=== PATIENT | female | born 1960 | race Caucasian/White ===

== ENCOUNTER → 2017-08-26 | Outpatient (CLI) | payer MEDICARE ==
[~2017-08-26] MED LIST: ACIPHEX20 MG PO; ATIVAN0.5 MG PO; AUGMENTIN 875 M1 TAB PO; BENADRYL25 MG PO; BIAXIN500 MG PO; CIPRO500 MG PO; CLARITIN10 MG PO; CLINDAMYCIN HC300 MG PO; CLINDAMYCIN150 MG PO; DARVOCET N 1001 TAB PO; DAYPRO600 M1 PO; DEPAKOTE500 MG PO; DILANTIN100 MG PO; LEVOTHYROXINE0.15 M1 PO; LORAZEPAM0.5 MG PO; LOVASTATIN40 MG PO; MOTRIN800 MG PO; NAPROSYN500 MG PO; NATURE'S BLEND F1 MG PO; OMEPRAZOLE40 MG PO; PALMITATE-A5000 IU PO; PRAVASTATIN SOD40 MG PO; PROZAC10 M1 PO; REGLAN10 MG PO; ROBAXIN500 MG PO; ROBAXIN750 MG PO; SERTRALINE HYDR50 MG PO; SKELAXIN800 MG PO; SULFAZINE500 MG PO; SYNTHROID,LEVO50 MCG PO; SYNTHROID0.175 MG PO; TAGAMET400 MG PO; VICODIN 5/500 505 MG PO; VITAMIN D5000 IU PO; VOLTAREN25 MG PO; ZITHROMAX250 MG PO; ZYRTEC10 MG PO
== END | disposition home or self-care (01) ==
LOC: RAD 14:08
DX: M17.0 Bilateral primary osteoarthritis of knee (principal); M48.04 Spinal stenosis, thoracic region; M47.894 Other spondylosis, thoracic region; J98.4 Other disorders of lung; F17.200 Nicotine dependence, unspecified, uncomplicated

== ENCOUNTER 2017-10-02 08:20 | Emergency (ER) | payer MEDICARE ==
[~2017-10-02] VITALS: Ht 167.6 cm; Wt 88.0 kg
[2017-10-02 08:30] VITALS: BP 141/70
[2017-10-02 09:25] LABS: BILIRUBIN NEGATIVE (NEGATIVE); BLOOD TRACE-INTACT (NEGATIVE); CLARITY CLEAR (CLEAR); COLOR YELLOW (YELLOW); GLUCOSE NEGATIVE (NEGATIVE); KETONE NEGATIVE (NEGATIVE); LEUKO ESTERASE NEGATIVE (NEGATIVE); NITRITE NEGATIVE (NEGATIVE); PH 5.5 (5.0-9.0); SPECIFIC GRAVITY 1.015 (1.005-1.030); UROBILINOGEN 0.2 E.U./dl (0.2-1.0)
[2017-10-02 09:37] LABS: BACTERIA 1+; WBC 0-2 wbc/hpf (0-5)
== END 2017-10-02 09:44 | disposition home or self-care (01) ==
LOC: ED 08:20
PROVIDERS: Emergency Medicine
DX: M54.5 Low back pain (principal); F17.200 Nicotine dependence, unspecified, uncomplicated; J44.9 Chronic obstructive pulmonary disease, unspecified; Z98.51 Tubal ligation status; Z90.710 Acquired absence of both cervix and uterus; Z79.899 Other long term (current) drug therapy; Z88.0 Allergy status to penicillin

== ENCOUNTER 2017-10-05 11:48 | Emergency (ER) | payer MEDICARE ==
[~2017-10-05] VITALS: Ht 167.6 cm; Wt 88.0 kg
[2017-10-05 12:11] VITALS: BP 134/98
[2017-10-05 12:29] LABS: BILIRUBIN NEGATIVE (NEGATIVE); BLOOD NEGATIVE (NEGATIVE); CLARITY SL CLOUDY (CLEAR); COLOR YELLOW (YELLOW); GLUCOSE NEGATIVE (NEGATIVE); KETONE NEGATIVE (NEGATIVE); LEUKO ESTERASE NEGATIVE (NEGATIVE); NITRITE NEGATIVE (NEGATIVE); PH 6.5 (5.0-9.0); SPECIFIC GRAVITY <= 1.005 (1.005-1.030); UROBILINOGEN 0.2 E.U./dl (0.2-1.0)
[2017-10-05] MEDS ORDERED: MEDROL DOSEPAK4 MG PO (12:33)
[2017-10-05] MEDS ORDERED: GABAPENTIN100 M2 PO (12:33)
[2017-10-05 12:46] LABS: BACTERIA TRACE; EPITHELIAL CELLS 21-30
== END 2017-10-05 12:43 | disposition home or self-care (01) ==
LOC: ED 11:48
PROVIDERS: Emergency Medicine
DX: M54.41 Lumbago with sciatica, right side (principal); R10.31 Right lower quadrant pain; F10.10 Alcohol abuse, uncomplicated; F17.200 Nicotine dependence, unspecified, uncomplicated; Z88.0 Allergy status to penicillin; Z79.899 Other long term (current) drug therapy; Z90.49 Acquired absence of other specified parts of digestive tract; Z98.51 Tubal ligation status

== ENCOUNTER 2018-02-19 10:47 | Emergency (ER) | payer MEDICARE ==
[~2018-02-19] VITALS: Wt 86.2 kg
[~2018-02-19 10:47] MED LIST changes: +GABAPENTIN100 M2 PO; +MEDROL DOSEPAK4 MG PO
[2018-02-19 12:20] VITALS: BP 148/62
[2018-02-19] MEDS ORDERED: Motrin,Rufen800 MG PO (12:58)
== END 2018-02-19 13:04 | disposition home or self-care (01) ==
LOC: ED 10:47
DX: S30.0XXA Contusion of lower back and pelvis, initial encounter (principal); Z88.0 Allergy status to penicillin; Z79.899 Other long term (current) drug therapy; Z90.49 Acquired absence of other specified parts of digestive tract; Z90.710 Acquired absence of both cervix and uterus; Z98.51 Tubal ligation status; W10.8XXA Fall (on) (from) other stairs and steps, initial encounter; Y93.89 Activity, other specified; Y92.89 Other specified places as the place of occurrence of the external cause; Y99.8 Other external cause status

== ENCOUNTER 2019-11-05 11:49 | Emergency (ER) | payer MEDICARE ==
[~2019-11-05] VITALS: Ht 167.6 cm; Wt 83.9 kg
[~2019-11-05 11:49] MED LIST changes: +Motrin,Rufen800 MG PO
[2019-11-05 11:52] VITALS: BP 162/70
[2019-11-05 12:22] LABS: BASO # 0.1 10*3/uL (0.0-0.1); BASO % 0.5 % (0.0-1.0); EOS # 0.3 10*3/uL (0.0-0.4); EOS % 2.6 % (1.0-4.0); HEMATOCRIT 45.3 % (37.0-47.0); HEMOGLOBIN 14.6 g/dl (12.0-16.0); LYMPH # 3.8 10*3/uL (1.3-4.4); LYMPH % 38.3 % (27.0-41.0); MEAN CELL VOLUME 91.7 fl (81.0-99.0); MEAN CORPUSCULAR HGB 29.6 pg (27.0-31.0); MEAN CORPUSCULAR HGB CONC 32.2 g/dl (33.0-37.0); MEAN PLATELET VOLUME 10.1 fl (9.6-12.3); MONO # 0.5 10*3/uL (0.1-1.0); MONO % 5.1 % (3.0-9.0); NEUT # 5.2 10*3/uL (2.3-7.9); NEUT % 53.3 % (47.0-73.0); PLATELET COUNT AUTOMATED 306 10*3/uL (130-400); RED BLOOD COUNT 4.94 10*6/uL (4.10-5.10); RED CELL DISTRI WIDTH 13.2 % (0-14.5); WHITE BLOOD COUNT 9.8 10*3/uL (4.8-10.8)
[2019-11-05 12:39] LABS: ALBUMIN 3.5 gm/dl (3.1-4.5); ALKALINE PHOSPHATASE 106 U/L (45-117); BUN 9 mg/dl (7-24); CHLORIDE 109 mmol/L (98-107); CREATININE 0.96 mg/dL (0.55-1.02); POTASSIUM 3.9 mmol/L (3.5-5.1); SGOT/AST 16 IU/L (3-35); SGPT/ALT 28 U/L (12-78); SODIUM 142 mmol/L (136-145); TOTAL PROTEIN 7.1 gm/dL (6.4-8.2)
[2019-11-05 12:40] LABS: TROPONIN I < 0.015 ng/ml (<0.045)
[2019-11-05] MEDS ORDERED: LEVAQUIN500 M2 PO (14:20)
[2019-11-05] MEDS ORDERED: PREDNISONE50 MG PO (14:20)
== END 2019-11-05 14:28 | disposition home or self-care (01) ==
LOC: ED 11:49
PROVIDERS: Family Medicine
DX: S30.0XXA Contusion of lower back and pelvis, initial encounter (principal); J40 Bronchitis, not specified as acute or chronic; R09.1 Pleurisy; Z88.0 Allergy status to penicillin; Z79.899 Other long term (current) drug therapy; X58.XXXA Exposure to other specified factors, initial encounter; Y93.89 Activity, other specified; Y92.89 Other specified places as the place of occurrence of the external cause; Y99.8 Other external cause status

== ENCOUNTER → 2019-12-26 | Outpatient (CLI) | payer MEDICARE ==
[~2019-12-26] MED LIST changes: +LEVAQUIN500 M2 PO; +PREDNISONE50 MG PO
[2019-12-26 12:09] LABS: HEMATOCRIT 45.6 % (37.0-47.0); HEMOGLOBIN 14.6 g/dl (12.0-16.0); MEAN CELL VOLUME 90.1 fl (81.0-99.0); MEAN CORPUSCULAR HGB 28.9 pg (27.0-31.0); MEAN PLATELET VOLUME 10.3 fl (9.6-12.3); PLATELET COUNT AUTOMATED 320 10*3/uL (130-400); RED BLOOD COUNT 5.06 10*6/uL (4.10-5.10); RED CELL DISTRI WIDTH 13.2 % (0-14.5)
[2019-12-26 12:59] LABS: ATYPICAL LYMPHS 3 % (0-0); BASOPHILS 2 % (0-1); PLATELET SUFFICIENCY NORMAL (NORMAL); TOTAL CELLS COUNTED 100 #CELLS
[2019-12-26 13:00] LABS: ALBUMIN 3.5 gm/dl (3.1-4.5); ALKALINE PHOSPHATASE 102 U/L (45-117); BUN 10 mg/dl (7-24); CHLORIDE 109 mmol/L (98-107); CHOLESTEROL 142 mg/dL (<200); CREATININE 0.91 mg/dL (0.55-1.02); FREE T4 1.72 ng/dl (0.76-1.46); HDL CHOLESTEROL 28 mg/dl (40-60); LDL CHOLESTEROL 66 mg/dL (9-159); POTASSIUM 4.5 mmol/L (3.5-5.1); SGOT/AST 14 IU/L (3-35); SGPT/ALT 25 U/L (12-78); SODIUM 141 mmol/L (136-145); TOTAL PROTEIN 7.2 gm/dL (6.4-8.2); TRIGLYCERIDES 239 mg/dl (<150); VLDL CHOLESTEROL 48 mg/dL (6-40)
[2019-12-26 13:25] LABS: VITAMIN D, 25-HYDROXY 48.7 ng/mL (30-100)
== END | disposition home or self-care (01) ==
LOC: LAB 11:50
PROVIDERS: Internal Medicine
DX: E55.9 Vitamin D deficiency, unspecified (principal); E66.9 Obesity, unspecified; R53.83 Other fatigue

== ENCOUNTER → 2020-06-04 | Outpatient (CLI) | payer OTHER | END | disposition home or self-care (01) | LOC: LAB 17:12 | DX: R19.7 Diarrhea, unspecified (principal) ==

== ENCOUNTER → 2021-02-07 | Outpatient (CLI) | payer OTHER ==
[2021-02-07 15:08] LABS: FREE T4 0.74 ng/dl (0.76-1.46)
[2021-02-07 15:13] LABS: THYROID STIM HORMONE (HS) 14.4 uIU/ml (0.358-4.75)
== END | disposition home or self-care (01) ==
LOC: LAB 14:00
PROVIDERS: ATTEND Internal Medicine
DX: E03.9 Hypothyroidism, unspecified (principal)

== ENCOUNTER → 2021-09-03 | Outpatient (CLI) | payer OTHER | END | disposition home or self-care (01) | LOC: LAB 12:46 | PROVIDERS: ATTEND Internal Medicine | DX: Z13.1 Encounter for screening for diabetes mellitus (principal); Z13.21 Encounter for screening for nutritional disorder; Z13.220 Encounter for screening for lipoid disorders; Z13.228 Encounter for screening for other metabolic disorders; Z13.6 Encounter for screening for cardiovascular disorders; Z13.89 Encounter for screening for other disorder; R53.81 Other malaise; R79.89 Other specified abnormal findings of blood chemistry; E55.9 Vitamin D deficiency, unspecified; M10.9 Gout, unspecified; D51.9 Vitamin B12 deficiency anemia, unspecified; D52.9 Folate deficiency anemia, unspecified; E03.9 Hypothyroidism, unspecified ==

== ENCOUNTER 2021-12-30 09:15 | Emergency (ER) | payer OTHER ==
[~2021-12-30] VITALS: Ht 167.6 cm; Wt 88.0 kg
[2021-12-30 09:39] VITALS: BP 155/89
[2021-12-30 10:03] LABS: BILIRUBIN 1+ (Negative); BLOOD Negative (Negative); CLARITY Clear (Clear); COLOR Dark Yellow (Yellow); GLUCOSE Negative (Negative); KETONE Trace (Negative); LEUKO ESTERASE Trace (Negative); NITRITE Positive (Negative); PH 6.5 (4.5-8.0); SPECIFIC GRAVITY 1.015 (1.001-1.030)
[2021-12-30 10:17] LABS: HEMATOCRIT 45.7 % (37.0-47.0); MEAN CELL VOLUME 91.6 fl (81.0-99.0); MEAN CORPUSCULAR HGB 30.1 pg (27.0-31.0); MEAN CORPUSCULAR HGB CONC 32.8 g/dl (33.0-37.0); MEAN PLATELET VOLUME 10.4 fl (9.6-12.3); PLATELET COUNT AUTOMATED 333 10*3/uL (130-400); RED BLOOD COUNT 4.99 10*6/uL (4.10-5.10); RED CELL DISTRI WIDTH 12.9 % (0-14.5); WHITE BLOOD COUNT 10.6 10*3/uL (4.8-10.8)
[2021-12-30 10:24] LABS: MANUAL DIFF REFLEX YES
[2021-12-30 10:29] LABS: ACT PARTIAL THROMBO TIME 25.9 SECONDS (20.0-32.1)
[2021-12-30 10:32] LABS: BACTERIA 2+; HYALINE CAST 21-30; MUCOUS 2+
[2021-12-30 10:38] LABS: CREATININE 1.15 mg/dL (0.55-1.02); POTASSIUM 4.2 mmol/L (3.5-5.1); TOTAL PROTEIN 7.7 gm/dL (6.4-8.2)
[2021-12-30 10:51] LABS: BASOPHILS 1 % (0-1); TOTAL CELLS COUNTED 100 #CELLS
[2021-12-30 10:52] LABS: PLATELET SUFFICIENCY NORMAL (NORMAL); POLYCHROMASIA SLIGHT
[2021-12-30] MEDS ORDERED: CIPRO500 MG PO (13:52)
[2021-12-30] MEDS ORDERED: PHENERGAN25 M3 PO (13:54)
== END 2021-12-30 14:10 | disposition home or self-care (01) ==
LOC: ED 09:15
PROVIDERS: Emergency Medicine
DX: N39.0 Urinary tract infection, site not specified (principal); R06.02 Shortness of breath; F17.200 Nicotine dependence, unspecified, uncomplicated; Z88.0 Allergy status to penicillin; Z79.2 Long term (current) use of antibiotics; Z79.899 Other long term (current) drug therapy; Z90.710 Acquired absence of both cervix and uterus; Z98.51 Tubal ligation status; Z90.49 Acquired absence of other specified parts of digestive tract

== ENCOUNTER → 2022-02-24 | Outpatient (CLI) | payer OTHER ==
[~2022-02-24] MED LIST changes: +PHENERGAN25 M3 PO
== END | disposition home or self-care (01) ==
LOC: MAMMO 11:30
PROVIDERS: ATTEND Internal Medicine
DX: Z12.31 Encounter for screening mammogram for malignant neoplasm of breast (principal)

== ENCOUNTER → 2022-08-04 | Outpatient (CLI) | payer OTHER | END | disposition home or self-care (01) | LOC: RAD 12:35 | PROVIDERS: ATTEND Internal Medicine | DX: M47.814 Spondylosis without myelopathy or radiculopathy, thoracic region (principal); M25.78 Osteophyte, vertebrae; M43.8X4 Other specified deforming dorsopathies, thoracic region ==

== ENCOUNTER 2022-08-08 15:27 | Emergency (ER) | payer OTHER ==
[~2022-08-08] VITALS: Ht 162.5 cm; Wt 88.0 kg
[2022-08-08 15:35] VITALS: BP 104/39
[2022-08-08 16:34] LABS: BASO # 0.1 10*3/uL (0.0-0.1); BASO % 0.4 % (0.0-1.0); EOS # 0.3 10*3/uL (0.0-0.4); EOS % 1.7 % (1.0-4.0); HEMATOCRIT 44.5 % (37.0-47.0); LYMPH % 24.8 % (27.0-41.0); MEAN CELL VOLUME 97.2 fl (81.0-99.0); MEAN CORPUSCULAR HGB 30.8 pg (27.0-31.0); MEAN CORPUSCULAR HGB CONC 31.7 g/dl (33.0-37.0); MEAN PLATELET VOLUME 10.2 fl (9.6-12.3); MONO # 1.1 10*3/uL (0.1-1.0); MONO % 6.8 % (3.0-9.0); NEUT # 10.7 10*3/uL (2.3-7.9); NEUT % 65.6 % (47.0-73.0); PLATELET COUNT AUTOMATED 324 10*3/uL (130-400); RED BLOOD COUNT 4.58 10*6/uL (4.10-5.10); RED CELL DISTRI WIDTH 12.2 % (0-14.5); WHITE BLOOD COUNT 16.3 10*3/uL (4.8-10.8)
[2022-08-08 16:51] LABS: ACT PARTIAL THROMBO TIME 24.7 SECONDS (20.0-32.1); INTERNATIONAL NORM RATIO 0.9 (2.0-3.5)
[2022-08-08 16:56] LABS: CREATININE 1.38 mg/dL (0.55-1.02); POTASSIUM 5.4 mmol/L (3.5-5.1); TOTAL PROTEIN 6.9 gm/dL (6.4-8.2)
[2022-08-08] MEDS ORDERED: CARAFATE1 G1 PO (19:36)
== END 2022-08-08 19:37 | disposition home or self-care (01) ==
LOC: ED 15:27
PROVIDERS: Family Medicine
DX: E87.5 Hyperkalemia (principal); K21.9 Gastro-esophageal reflux disease without esophagitis; K52.89 Other specified noninfective gastroenteritis and colitis; K50.10 Crohn's disease of large intestine without complications; Z88.0 Allergy status to penicillin; Z79.899 Other long term (current) drug therapy; Z90.710 Acquired absence of both cervix and uterus; Z98.51 Tubal ligation status; Z90.49 Acquired absence of other specified parts of digestive tract

== ENCOUNTER → 2022-08-11 | Outpatient (CLI) | payer OTHER ==
[~2022-08-11] MED LIST changes: +CARAFATE1 G1 PO
[2022-08-11 14:57] LABS: BUN 13 mg/dl (7-24); CHLORIDE 110 mmol/L (98-107); CREATININE 0.88 mg/dL (0.55-1.02); POTASSIUM 4.7 mmol/L (3.5-5.1); SODIUM 139 mmol/L (136-145)
== END | disposition home or self-care (01) ==
LOC: LAB 14:26
PROVIDERS: ATTEND Family Medicine
DX: E83.52 Hypercalcemia (principal)

== ENCOUNTER → 2023-01-07 | Outpatient (CLI) | payer OTHER | END | disposition home or self-care (01) | LOC: LAB 15:52 | PROVIDERS: ATTEND Internal Medicine | DX: E79.0 Hyperuricemia without signs of inflammatory arthritis and tophaceous disease (principal) ==

== ENCOUNTER → 2023-08-28 | Outpatient (CLI) | payer OTHER ==
[2023-08-28 13:47] LABS: BASO # 0.1 10*3/uL (0.0-0.1); BASO % 0.5 % (0.0-1.0); EOS # 0.3 10*3/uL (0.0-0.4); EOS % 2.8 % (1.0-4.0); HEMATOCRIT 45.3 % (37.0-47.0); LYMPH # 3.7 10*3/uL (1.3-4.4); LYMPH % 32.9 % (27.0-41.0); MEAN CELL VOLUME 95.8 fl (81.0-99.0); MEAN CORPUSCULAR HGB 30.7 pg (27.0-31.0); MEAN PLATELET VOLUME 10.1 fl (9.6-12.3); MONO # 0.7 10*3/uL (0.1-1.0); NEUT # 6.4 10*3/uL (2.3-7.9); NEUT % 57.5 % (47.0-73.0); PLATELET COUNT AUTOMATED 306 10*3/uL (130-400); RED BLOOD COUNT 4.73 10*6/uL (4.10-5.10); RED CELL DISTRI WIDTH 13.4 % (0-14.5); WHITE BLOOD COUNT 11.2 10*3/uL (4.8-10.8)
[2023-08-28 14:17] LABS: FREE T4 1.1 ng/dl (0.89-1.76); POTASSIUM 4.7 mmol/L (3.4-5.1); URIC ACID 7.3 mg/dL (3.1-7.8)
== END | disposition home or self-care (01) ==
LOC: LAB 13:31
PROVIDERS: ATTEND Internal Medicine
DX: Z13.0 Encounter for screening for diseases of the blood and blood-forming organs and certain disorders involving the immune mechanism (principal); Z13.1 Encounter for screening for diabetes mellitus; Z13.21 Encounter for screening for nutritional disorder; Z13.220 Encounter for screening for lipoid disorders; Z13.228 Encounter for screening for other metabolic disorders; Z13.29 Encounter for screening for other suspected endocrine disorder; Z13.6 Encounter for screening for cardiovascular disorders; Z13.89 Encounter for screening for other disorder; Z13.9 Encounter for screening, unspecified; F41.1 Generalized anxiety disorder; I10 Essential (primary) hypertension; J44.1 Chronic obstructive pulmonary disease with (acute) exacerbation; E78.2 Mixed hyperlipidemia; E55.9 Vitamin D deficiency, unspecified

== ENCOUNTER 2024-10-03 10:04 | Observation (INO) | payer MEDICARE ==
[~2024-10-03] VITALS: Ht 167.6 cm; Wt 79.8 kg
[~2024-10-03 10:04] MED LIST changes: -LEVOTHYROXINE0.15 M1 PO; +LEVOTHYROXINE125 MC1 PO
[2024-10-03 10:18] VITALS: BP 162/73
[2024-10-03] MEDS ORDERED: PROPRANOLOL ER80 MG PO (10:21)
[2024-10-03] MEDS ORDERED: DELZICOL400 M2 PO (10:21)
[2024-10-03] MEDS ORDERED: ROPINIROLE HYDRO2 M2 PO (10:22)
[2024-10-03] MEDS ORDERED: VITAMIN D350 MCG PO (10:22)
[2024-10-03 10:53] LABS: BASO # 0.1 10*3/uL (0.0-0.1); BASO % 0.6 % (0.0-1.0); EOS # 0.3 10*3/uL (0.0-0.4); EOS % 2.4 % (1.0-4.0); HEMATOCRIT 46.2 % (37.0-47.0); MEAN CELL VOLUME 95.7 fl (81.0-99.0); MEAN CORPUSCULAR HGB 29.8 pg (27.0-31.0); MEAN CORPUSCULAR HGB CONC 31.2 g/dl (33.0-37.0); MEAN PLATELET VOLUME 10.2 fl (9.6-12.3); MONO # 0.8 10*3/uL (0.1-1.0); MONO % 7.2 % (3.0-9.0); NEUT # 7.2 10*3/uL (2.3-7.9); NEUT % 63.4 % (47.0-73.0); PLATELET COUNT AUTOMATED 317 10*3/uL (130-400); RED BLOOD COUNT 4.83 10*6/uL (4.10-5.10); RED CELL DISTRI WIDTH 13.3 % (0-14.5); WHITE BLOOD COUNT 11.3 10*3/uL (4.8-10.8)
[2024-10-03 11:05] LABS: BILIRUBIN Negative (Negative); BLOOD Negative (Negative); CLARITY Clear (Clear); COLOR Yellow (Yellow); GLUCOSE Negative (Negative); KETONE Negative (Negative); LEUKO ESTERASE Negative (Negative); NITRITE Negative (Negative); UROBILINOGEN 0.2 E.U./dl (0.0-1.0)
[2024-10-03 11:11] LABS: ACT PARTIAL THROMBO TIME 23.7 SECONDS (20.0-32.1)
[2024-10-03 11:12] LABS: URINE AMPHETAMINES Negative (1000ng/ml); URINE BARBITURATES Negative (200ng/ml); URINE BENZODIAZEPINES Negative (200ng/ml); URINE CANNABINOIDS (THC) Negative (50ng/ml); URINE COCAINE Negative (300ng/ml); URINE METHADONE Negative (300ng/ml); URINE OPIATES Negative (300ng/ml); URINE PHENCYCLIDINE Negative (25ng/ml)
[2024-10-03 11:14] LABS: BACTERIA TRACE; MUCOUS 1+
[2024-10-03 11:15] LABS: POTASSIUM 4.5 mmol/L (3.4-5.1); TOTAL PROTEIN 7.1 gm/dL (6.0-8.0)
[2024-10-03 11:57] VITALS: BP 139/60
[2024-10-03 12:29] VITALS: BP 164/71
[2024-10-03 13:50] VITALS: BP 155/75
[2024-10-03] MEDS ORDERED: amLODIPine besylate 5 MG TAB PO SCH (14:55)
[2024-10-03] MEDS ORDERED: ASPIRIN 325 MG TAB PO SCH (15:00)
[2024-10-03] MEDS ORDERED: Nicotine 14 MG PATCH T SCH (15:00)
[2024-10-03] MEDS ORDERED: IOHEXOL 350 MG/ML 100 ML VIAL IV ONE ×2 (15:10→15:59)
[2024-10-03] MEDS ORDERED: SODIUM CHLORIDE 0.9% 100 ML BAG IV ONE (15:10)
[2024-10-03] MEDS ORDERED: SODIUM CHLORIDE 0.9% 100 ML IV ONE (15:59)
[2024-10-03 16:00] VITALS: BP 141/69
[2024-10-03] MEDS ORDERED: ASPIRIN ENTERIC COATED 81 MG TAB PO SCH (17:01)
[2024-10-03 20:00] VITALS: BP 106/50
[2024-10-04 00:39] VITALS: BP 135/64
[2024-10-04 08:00] VITALS: BP 140/62
[2024-10-04] MEDS ORDERED: AMLODIPINE BESYL5 MG PO (08:18)
[2024-10-04 08:59] LABS: POTASSIUM 4.3 mmol/L (3.4-5.1)
[2024-10-04] MEDS ORDERED: DIAZEPAM 10 MG/2 ML SYR IV ONE (09:20)
[2024-10-04] MEDS ORDERED: GADOTERATE MEGLUMINE 7.5 MMOL/15 ML VIAL IV ONE (11:39)
[2024-10-04] MEDS ORDERED: Nicotine 21 MG PATCH T SCH (11:47)
[2024-10-04 12:00] VITALS: BP 118/55
[2024-10-04] MEDS ORDERED: LEVOTHYROXINE125 MCG PO (14:41)
[2024-10-04] MEDS ORDERED: ALLOPURINOL200 MG PO (14:41)
[2024-10-04 16:00] VITALS: BP 116/54
[2024-10-04 20:00] VITALS: BP 119/52
[2024-10-05] VITALS: BP 127/49
[2024-10-05] MEDS ORDERED: AMLODIPINE BESYL5 MG PO (07:26)
[2024-10-05] MEDS ORDERED: DIAZEPAM 10 MG/2 ML SYR IV ONE (07:35)
[2024-10-05] MEDS ORDERED: SODIUM CHLORIDE 0.9% 50 ML IV ONE (08:45)
[2024-10-05] MEDS ORDERED: GADOTERATE MEGLUMINE 7.5 MMOL/15 ML VIAL IV ONE (08:45)
== END 2024-10-05 09:45 | disposition home or self-care (01) ==
LOC: ED 10:04 → 4E 12:32 → EDHOLD 12:32 → 4E 13:25
PROVIDERS: Internal Medicine; ADMIT Internal Medicine; ATTEND Internal Medicine
DX: R55 Syncope and collapse (principal); N28.1 Cyst of kidney, acquired; I10 Essential (primary) hypertension; G40.909 Epilepsy, unspecified, not intractable, without status epilepticus; F41.1 Generalized anxiety disorder; R00.1 Bradycardia, unspecified; Z79.899 Other long term (current) drug therapy

== ENCOUNTER → 2025-04-14 | Outpatient (CLI) | payer OTHER ==
[~2025-04-14] MED LIST changes: +ALLOPURINOL200 MG PO; +AMLODIPINE BESYL5 MG PO; +DELZICOL400 M2 PO; +LEVOTHYROXINE125 MCG PO; +PROPRANOLOL ER80 MG PO; +ROPINIROLE HYDRO2 M2 PO; +VITAMIN D350 MCG PO
[2025-04-14 15:28] LABS: URIC ACID 6.4 mg/dL (3.1-7.8)
== END | disposition home or self-care (01) ==
LOC: LAB 12:09
PROVIDERS: ATTEND Nurse Practitioner Family
DX: M1A.9XX0 Chronic gout, unspecified, without tophus (tophi) (principal); E03.9 Hypothyroidism, unspecified; E55.9 Vitamin D deficiency, unspecified; F43.21 Adjustment disorder with depressed mood

== ENCOUNTER → 2025-06-16 | Outpatient (CLI) | payer MEDICARE | END | disposition home or self-care (01) | LOC: RHCWE 11:24 | PROVIDERS: ATTEND Nurse Practitioner Family | DX: E03.9 Hypothyroidism, unspecified (principal); F43.21 Adjustment disorder with depressed mood ==